=== PATIENT | female | born 1980 | race Two or more races ===

== ENCOUNTER 2018-09-20 14:24 | Emergency (ER) | payer SELFPAY ==
[~2018-09-20] VITALS: Ht 160 cm; Wt 59.0 kg
[2018-09-20 14:30] VITALS: BP 121/76
[2018-09-20 14:56] LABS: BILIRUBIN,URINE NEGATIVE (NEG); CLARITY,URINE CLEAR; COLOR,URINE YELLOW; NITRITE,URINE NEGATIVE (NEG); PH,URINE 7.5; PROTEIN,URINE NEGATIVE (NEG-TRACE)
[2018-09-20 15:00] LABS: BACTERIA,URINE 0 /HPF (0-FEW); RBC,URINE 0 /HPF (0-2); SQUAMOUS EPITHELIAL CELL,UR FEW /LPF; WBC,URINE OCC /HPF (0-4)
--- NOTE | 2018-09-20 15:36 | PHYS DOC ---
Past Medical History Past Medical History: No Pertinent History Past Surgical History: No Surgical History Alcohol Use: None Drug Use: None Adult General Chief Complaint Chief Complaint: BACK PAIN - NO INJURY [facility] HPI Patient is a 37 year old female who presents with back and pelvic pain. Patient states she has been having back pain for many weeks. She did not have trauma. Pain is located in the lumbar region. Pain is worse with movement and improves while at rest. She has been using [id number] medications with some relief. She also has a secondary complaint of pelvic cramping and pain which has been over the last 48 hours. The patient also endorses some yellow vaginal discharge which was abnormal last week. Her last menstrual cycle was one week earlier. She does endorse normal menstrual cycles and no irregular bleeding. The patient states she is sexually active. She is not currently taking control. No fever or chills. Denies urinary symptoms. Review of Systems Review of Systems Constitutional: Denies fever or chills Eyes: Denies change in visual acuity HENT: Denies Respiratory: Denies Cardiovascular: No additional information not addressed in HPI GI: Denies nausea or vomiting : Denies dysuria or hematuria Musculoskeletal: back pain as described above Integument: Denies rash or skin lesions Neurologic: Denies headache Endocrine: Denies polyuria or polydipsia All other systems were reviewed and found to be within normal limits, except as documented in this note. Current Medications Current Medications Current Medications Medications (Trade) Dose Ordered Sig/Leticia Start Time Stop Time Status Last Admin Dose Admin Info (CONTRAST GIVEN -- Rx MONITORING) 1 each PRN DAILY PRN 09/20/18 17:15 09/20/18 19:10 DC Iohexol (Omnipaque 300 Mg/ml) 75 ml 1X ONCE 09/20/18 17:15 09/20/18 17:16 DC Allergies Allergies Allergies Coded Allergies Type Severity Reaction Last Updated Verified No Known Drug Allergies 09/20/18 No Physical Exam Physical Exam Constitutional: Well developed, well nourished, no acute distress, non-toxic appearance HENT: Normocephalic, atraumatic, bilateral external ears normal, oropharynx moist Eyes: PERRLA, EOMI, conjunctiva normal Neck: Normal range of motion, no tenderness Cardiovascular:Heart rate regular rhythm, no murmur Lungs & Thorax: Bilateral breath sounds clear to auscultation Abdomen: Bowel sounds normal, soft, no tenderness Skin: Warm, dry, no erythema, no rash Back: No tenderness, no CVA tenderness Neurologic: Alert and oriented X 3 Psychologic: Affect normal, judgement normal, mood normal. Pelvic: Normal female external genitalia. Vaginal mucosa is moist and uninflamed. Uterus is retroverted. Cervical os is visualized. There is minimal clear discharge in fluid present. No cervical motion tenderness or adnexal masses or tenderness during the exam. Current Patient Data Vital Signs Vital Signs Date Time Temp Pulse Resp B/P (MAP) Pulse Ox O2 Delivery O2 Flow Rate FiO2 09/20/18 14:30 98.5 75 18 121/76 (91) 97 Room Air 98.5 Lab Values Laboratory Tests Test 09/20/18 14:40 09/20/18 14:51 Urine Collection Type Unknown Urine Color Yellow Urine Clarity Clear Urine pH 7.5 Urine Specific [place] 1.025 Urine Protein Negative mg/dL (NEG-TRACE) Urine Glucose (UA) Negative mg/dL (NEG) Urine Ketones (Stick) Negative mg/dL (NEG) Urine Blood Negative (NEG) Urine Nitrite Negative (NEG) Urine Bilirubin Negative (NEG) Urine Urobilinogen Dipstick 1.0 mg/dL (0.2 mg/dL) Urine Leukocyte Esterase Negative (NEG) Urine RBC 0 /HPF (0-2) Urine WBC Occ /HPF (0-4) Urine Squamous Epithelial Cells Few /LPF Urine Bacteria 0 /HPF (0-FEW) Urine Mucus Mod /LPF POC Urine HCG, Qualitative Hcg negative (Negative) Microbiology 09/20/18 Wet Prep - Final, Complete EKG EKG [] Radiology/Procedures Radiology/Procedures FINDINGS: The uterus measures 7.5 x 3.4 x 4.8 cm. The endometrium measures 6.6 mm in thickness. The left ovary measures 2.7 x 2.2 x 1.6 cm. Blood flow identified in the left ovary. There is a large complex echogenic heterogeneous mass identified in the right adnexa measuring 8.7 x 6.8 x 1.8 cm could be a large exophytic fundal fibroid extending into the right adnexa or a right adnexal mass. Differentiation is difficult on this examination given the size. Right ovary could not be clearly defined. IMPRESSION: 1. Large complex echogenic heterogeneous mass with vascular flow, identified in the right adnexa measuring 8.7 x 6.8 x 1.8 cm could be a large exophytic fundal fibroid extending into the right adnexa or a right adnexal mass. Differentiation is difficult on this examination given the size. Recommend MRI pelvis or CT for further evaluation CT abd/pelvis: FINDINGS: Lower thorax: Lung bases are clear. Liver: Large lesion at the posterior right lobe of liver is hypodense centrally, with an irregular hypervascular nodular periphery. This may represent a large hemangioma. Measures about 4 cm. Spleen: Unremarkable Pancreas: Unremarkable Adrenals: No evidence of mass. Kidneys: No obvious mass. Urinary tracts: No hydronephrosis. Gallbladder: No calcified stone Lymph nodes: No significant enlargement Vessels: Aorta is nonaneurysmal. GI tract: No evidence of obstruction or acute colitis but exam may be limited without oral contrast. Appendix not definitely seen. Reproductive organs: Large pelvic mass is identified. This may represent a large pedunculated fibroid arising from the uterus. Not included in the uterus, this mass measures about 9 cm x 7 cm x 9.3 cm. This probably does not arise from the left adnexa or the right adnexa although it contacts both of these. Mass demonstrates a heterogeneous solid appearance, and is relatively isodense with the uterus. Urinary bladder: Unremarkable. Peritoneum: No evidence of pneumoperitoneum. No free fluid. Abdominal wall:Unremarkable Spine: Vertebral body height and alignment are intact. Bones: No destructive process identified. External Soft Tissue: No acute findings. IMPRESSION: 1. The large pelvic mass is again identified. This most likely is of uterine origin. This may represent a large pedunculated or exophytic uterine fibroid, versus other uterine mass. Adnexal origin is considered less likely. MR pelvis could further evaluate. 2. Right hepatic lesion, may represent a large hemangioma. MR of the liver could further evaluate. Course & Med Decision Making Course & Med Decision Making Pertinent Labs and Imaging studies reviewed. (See chart for details) 15:10: Pelvic exam is completed. Patient is seen and examined. Overall negative pelvic exam. Samples were sent to the laboratory. The examination was accompanied by a female registered nurse. Pelvic ultrasound is ordered. 18:45: All results are reviewed and discussed with the patient. The online marketing specialist [employer] is used for this conversation. Pelvic exam as documented above was unremarkable. The exam was accompanied by female registered nurse. The patient subsequently underwent ultrasound of the pelvic area which was revealing for a pelvic mass as described above. CT was recommended for further evaluation so this was completed with contrast. Again, the results were consistent with the ultrasound findings. The patient was in no acute distress. No fever. I counseled with the on-call rip and groove machine operator, who will see the patient in close follow-up. Plan this evening is for discharge to home. All the patient 's questions were answered prior to discharge and she was agreeable with the plan of care. The patient was provided some ibuprofen for mild pain and [place] for more severe pain symptoms to use as needed. With the use of an interpretive services, pain and opiate medication precautions were also discussed. Dragon Disclaimer Dragon Disclaimer This electronic medical record was generated, in whole or in part, using a voice recognition dictation system. Departure Departure Disposition: HOME, SELF-CARE Condition: GOOD Referrals: NO PCP (PCP) Scripts Hydrocodone/Apap 5-325 (NORCO 5-325 TABLET) 1 Each Tablet 1-2 EACH PO PRN Q6HRS PRN for SEVERE PAIN, #20 as needed for pain Prov: LAWRENCE AVILEZ DO 09/20/18 Ibuprofen (IBUPROFEN) 800 Mg Tablet 800 MG PO PRN TID PRN for MILD PAIN, #30 TAB take with food or milk to avoid upsetting stomach Prov: LAWRENCE AVILEZ DO 09/20/18 LAWRENCE AVILEZ DO Sep 20, 2018 15:36
--- NOTE | 2018-09-20 16:40 | RAD ---
Examination: Ultrasound pelvis HISTORY: History of pelvic pain COMPARISON: None available TECHNIQUE: Transabdominal, transvaginal ultrasound examination of the pelvis FINDINGS: The uterus measures 7.5 x 3.4 x 4.8 cm. The endometrium measures 6.6 mm in thickness. The left ovary measures 2.7 x 2.2 x 1.6 cm. Blood flow identified in the left ovary. There is a large complex echogenic heterogeneous mass identified in the right adnexa measuring 8.7 x 6.8 x 1.8 cm could be a large exophytic fundal fibroid extending into the right adnexa or a right adnexal mass. Differentiation is difficult on this examination given the size. Right ovary could not be clearly defined. IMPRESSION: 1. Large complex echogenic heterogeneous mass with vascular flow, identified in the right adnexa measuring 8.7 x 6.8 x 1.8 cm could be a large exophytic fundal fibroid extending into the right adnexa or a right adnexal mass. Differentiation is difficult on this examination given the size. Recommend MRI pelvis or CT for further evaluation Electronically signed by: Reinaldo Locke MD (09/20/2018 4:36 PM) [place] [id number]
[2018-09-20] MEDS ORDERED: CONTRAST GIVEN. MC PRN (17:15)
[2018-09-20] MEDS ORDERED: IOHEXOL 300 MG/ML 100ML VIAL. IV ONE (17:15)
--- NOTE | 2018-09-20 18:14 | RAD ---
CT ABD PELV W/ IV CONTRST ONLY Indication: Large pelvic mass identified on ultrasound. Exposure: One or more of the following individualized dose reduction techniques were utilized for this examination: 1. Automated exposure control 2. Adjustment of the mA and/or kV according to patient size 3. Use of iterative reconstruction technique. Comparison: Ultrasound exam of earlier today. Contrast: Intravenous contrast was given. No oral contrast per request. FINDINGS: Lower thorax: Lung bases are clear. Liver: Large lesion at the posterior right lobe of liver is hypodense centrally, with an irregular hypervascular nodular periphery. This may represent a large hemangioma. Measures about 4 cm. Spleen: Unremarkable Pancreas: Unremarkable Adrenals: No evidence of mass. Kidneys: No obvious mass. Urinary tracts: No hydronephrosis. Gallbladder: No calcified stone Lymph nodes: No significant enlargement Vessels: Aorta is nonaneurysmal. GI tract: No evidence of obstruction or acute colitis but exam may be limited without oral contrast. Appendix not definitely seen. Reproductive organs: Large pelvic mass is identified. This may represent a large pedunculated fibroid arising from the uterus. Not included in the uterus, this mass measures about 9 cm x 7 cm x 9.3 cm. This probably does not arise from the left adnexa or the right adnexa although it contacts both of these. Mass demonstrates a heterogeneous solid appearance, and is relatively isodense with the uterus. Urinary bladder: Unremarkable. Peritoneum: No evidence of pneumoperitoneum. No free fluid. Abdominal wall:Unremarkable Spine: Vertebral body height and alignment are intact. Bones: No destructive process identified. External Soft Tissue: No acute findings. IMPRESSION: 1. The large pelvic mass is again identified. This most likely is of uterine origin. This may represent a large pedunculated or exophytic uterine fibroid, versus other uterine mass. Adnexal origin is considered less likely. MR pelvis could further evaluate. 2. Right hepatic lesion, may represent a large hemangioma. MR of the liver could further evaluate. Electronically signed by: Dandy Brown MD (09/20/2018 6:10 PM) [id number]
[2018-09-20] MEDS ORDERED: IBUP-1060 PO (18:38)
[2018-09-20] MEDS ORDERED: HYDR-3164 PO (18:38)
[2018-09-21 13:28] LABS: GC PROBE Negative (Negative)
== END 2018-09-20 19:00 | disposition home or self-care (01) ==
LOC: ER 14:24
DX: K76.89 Other specified diseases of liver (principal); M54.9 Dorsalgia, unspecified; N85.4 Malposition of uterus
CPT/HCPCS: 74177; 76856; 81001; 81025; 87491; 87591; 99284; Q0111